=== PATIENT | female | born 1985 | race African-American/Black ===

== ENCOUNTER 2016-10-28 10:15 | Inpatient (IN) | payer OTHER ==
[2016-10-28 12:12] VITALS: BMI 35.1
--- NOTE | 2016-10-28 14:17 | HP ---
Admission [facility] - [facility] Chief Complaint: DETOX TX FOR ALCOHOLISM.."I WANNA GET MY LIFE TOGETHER'. Allergies/Adverse Reactions: Allergies Allergy/AdvReac Type Severity Reaction Status Date / Time penicillin G Allergy Severe Rash Verified 10/28/16 13:33 haloperidol [From Haldol] AdvReac Severe stiffness Verified 10/28/16 13:33 haloperidol lactate AdvReac Severe stiffness Verified 10/28/16 13:33 [From Haldol] History of Present Illness: 31 Y/O AA/FEMALE WITH A HX OF ALCOHOL,COCAINE,MARIJUANA/K2/?PCP DEPENDENCE SEEKING DETOX TX. Exam Limitations: No Limitations - Ebola screening Have you traveled outside of the country in the last 21 days: No Have you had contact with anyone from an Ebola affected area: No Have you been sick,other than usual withdrawal symptoms: No - Review of Systems Constitutional: Chills, Loss of Appetite, Night Sweats, Changes in sleep EENT: reports: Blurred Vision ("I NEED GLASSES") Respiratory: reports: No Symptoms reported Cardiac: reports: Palpitations GI: reports: Diarrhea, Poor Appetite : reports: No Symptoms Reported Musculoskeletal: reports: Back Pain, Joint Pain, Muscle Pain Integumentary: reports: No Symptoms Reported Neuro: reports: Tremors, Unsteady Gait Endocrine: reports: No Symptoms Reported Hematology: reports: No Symptoms Reported Psychiatric: reports: Orientated x3, Agitated, Anxious, Depressed Other Systems: Reviewed and Negative Patient History - Patient Medical History Hx Anemia: No Hx Asthma: No Hx Chronic Obstructive Pulmonary Disease (COPD): No Hx Cardiac Disorders: No Hx Hypertension: No Hx Hypercholesterolemia: No HX Cerebrovascular Accident: No Hx Seizures: No Hx Diabetes: No Hx Gastrointestinal Disorders: No Hx Genitourinary Disorders: No Hx Sexually Transmitted Disorders: No Hx Renal Disease (ESRD): No Hx Thyroid Disease: No Hx Human Immunodeficiency Virus (HIV): No (NEGATIVE HX) Hx Hepatitis C: No Hx Depression: Yes (NO CURRENT MED) Hx Suicide Attempt: No (DENIES) Hx Schizophrenia: No - Patient Surgical History Past Surgical History: Yes Hx Neurologic Surgery: No Hx Cataract Extraction: No Hx Cardiac Surgery: No Hx Lung Surgery: No Hx Breast Surgery: No Hx Breast Biopsy: No Hx Abdominal Surgery: No Hx Appendectomy: No Hx Cholecystectomy: No Hx Genitourinary Surgery: No Hx Section: Yes (x2) Hx Orthopedic Surgery: No Anesthesia Reaction: No - PPD History Previous Implant?: Yes Documented Results: Negative w/o proof Implanted On Prior R Admission?: No PPD to be Administered?: Yes - Reproductive History Patient is a Female of Child Bearing Age (11 -55 yrs old): Yes Last Menstrual Period: 10/28/16 Patient : No - Smoking Cessation Smoking history: Current every day smoker Have you smoked in the past 12 months: Yes Aproximately how many cigarettes per day: 20 Hx Chewing Tobacco Use: No Initiated information on smoking cessation: Yes 'Breaking Loose' booklet given: 10/28/16 - Substance & Tx. History Hx Alcohol Use: Yes (BEER/4LOKO/RUM) Hx Substance Use: Yes (CRACK/K2) Substance Use Type: Alcohol, Cocaine Hx Substance Use Treatment: Yes ([facility]) - Substances Abused Crack Route: Smoking Frequency: Daily Amount used: $20 Age of first use: 21 Date of Last Use: 10/27/16 Alcohol-beer/4 pam/rum Route: Oral Frequency: Daily Amount used: 10 (12 oz.)/1 pt. Age of first use: 16 Date of Last Use: 10/27/16 K2 Route: Smoking Frequency: 1-2 times per week Amount used: $5 Age of first use: 31 Date of Last Use: 10/27/16 Family Disease History - Family Disease History Family History: Unable to Obtain ("I DON'T KNOW") Admission Physical Exam [facility]HS - Vital Signs Vital Signs: Vital Signs - 24 hr 10/28/16 12:05 Temperature 97.8 F Pulse Rate 77 Respiratory 18 Rate Blood Pressure 132/81 - Physical General Appearance: Yes: Moderate Distress, Obese, Irritable, Anxious HEENTM: Yes: EOMI, Normocephalic, CLEO, Pharynx Normal Respiratory: Yes: Chest Non-Tender, Lungs Clear, Normal Breath Sounds, No Respiratory Distress Neck: Yes: Supple, Trachea in good position Breast: Yes: Breast Exam Deferred Cardiology: Yes: Regular Rhythm, Regular Rate, S1, S2 Abdominal: Yes: Normal Bowel Sounds, Non Tender, Soft Genitourinary: Yes: Other (N/C) Back: Yes: Within Normal Limits Musculoskeletal: Yes: full range of Motion, Gait Steady Extremities: Yes: Normal Range of Motion, Non-Tender Neurological: Yes: bridge tender II-XII NML intact, Fully Oriented, Alert, Motor Strength 5/5 Integumentary: Yes: Dry, Warm Lymphatic: Yes: Within Normal Limits - Diagnostic (1) Alcohol dependence with uncomplicated withdrawal Current Visit: Yes Status: Acute (2) Cocaine dependence, uncomplicated Current Visit: Yes Status: Acute (3) History of depression Current Visit: Yes Status: Chronic Cleared for Admission [facility] - Detox or Rehab [facility] Level of Care: Medically Managed Detox Regimen/Protocol: Librium [facility] Breath Alcohol Content Breath Alcohol Content: 0 Urine Pregancy Test - Result Urine Test Results: Negative- NO Line Present Urine Drug Screen - Results Drug Screen Negative: No Urine Drug Screen Results: THC-Marijuana, OFE-Cocaine, PCP-Phencyclidine
[2016-10-28] MEDS ORDERED: chlordiazePOXIDE HCL 25 MG CAPSULE PO PRN (14:40)
[2016-10-28] MEDS ORDERED: IBUPROFEN 400 MG TABLET (FP) PO PRN (14:40)
[2016-10-28] MEDS ORDERED: MENTHOL/PHENOL 1 EACH UD MM PRN (14:40)
[2016-10-28] MEDS ORDERED: MAGNESIUM HYDROX 2400MG/30ML ORAL SUSPENSION 30 ML CUP PO PRN (14:40)
[2016-10-28] MEDS ORDERED: MAGNESIUM CITRATE 300 ML BOTTLE PO PRN (14:40)
[2016-10-28] MEDS ORDERED: NICOTINE POLACRILEX 4 MG GUM BC PRN (14:40)
[2016-10-28] MEDS ORDERED: guaiFENesin/D-METHORPHAN HB 10 ML UNIT-DOSE CUPS PO PRN (14:40)
[2016-10-28] MEDS ORDERED: MAG HYDROX/AL HYDROX/SIMETH 30 ML UNIT-DOSE CUP PO PRN (14:40)
[2016-10-28] MEDS ORDERED: P-EPHED 60MG/TRIPROLIDI 2.5MG TABLET PO PRN (14:40)
[2016-10-28] MEDS ORDERED: ACETAMINOPHEN 325 MG TABLET (FP) PO PRN (14:40)
[2016-10-28] MEDS ORDERED: diphenhydrAMINE HCL 50 MG CAPSULE PO PRN (14:40)
[2016-10-28] MEDS ORDERED: LOPERAMIDE HCL 2 MG CAPSULE PO PRN (14:40)
[2016-10-28] MEDS ORDERED: chlordiazePOXIDE HCL 25 MG CAPSULE PO ONE (15:15)
[2016-10-28] MEDS: NICOTINE 21 MG/24 HOURS TOPICAL PATCH TD SCH (15:45)
[2016-10-28 18:16] LABS: URINE APPEARANCE TURBID; URINE BILIRUBIN NEGATIVE (NEGATIVE); URINE COLOR YELLOW; URINE GLUCOSE (UA) NEGATIVE (NEGATIVE); URINE KETONE NEGATIVE (NEGATIVE); URINE NITRITE NEGATIVE (NEGATIVE); URINE UROBILINOGEN NEGATIVE E.U./dl (0.2-1.0)
[2016-10-28 18:19] LABS: URINE BLOOD 2+ (NEGATIVE); URINE LEUK ESTERASE TRACE (NEGATIVE); URINE PROTEIN 1+ (NEGATIVE)
[2016-10-28] MEDS: chlordiazePOXIDE HCL 25 MG CAPSULE PO SCH ×2 (18:25→22:29)
[2016-10-28 19:00] LABS: URINE MUCUS MANY; URINE RBC 6 /hpf (0-3); URINE WBC 120 /hpf (3-5); YEAST MANY
[2016-10-28] MEDS: THIAMINE HCL 100 MG TABLET (FP) PO SCH (22:29)
[2016-10-29] MEDS: chlordiazePOXIDE HCL 25 MG CAPSULE PO SCH ×4 (08:18→23:00)
--- NOTE | 2016-10-29 08:49 | CONSULT ---
[facility] Psychiatric Consult - Data Date of interview: 10/29/16 Admission source: [facility] Identifying data: This is 31 years old female with no psychiatric hospitalization history inmtoxicated with: Alcohol,and Cocaine Substance Abuse History: - Smoking Cessation. Smoking history: Current every day smoker. Have you smoked in the past 12 months: Yes. Aproximately how many cigarettes per day: 20. Hx Chewing Tobacco Use: No. Initiated information on smoking cessation: Yes. 'Breaking Loose' booklet given: 10/28/16. - Substance & Tx. History. Hx Alcohol Use: Yes (BEER/4LOKO/RUM). Hx Substance Use: Yes ( CRACK/K2). Substance Use Type: Alcohol, Cocaine. Hx Substance Use Treatment: Yes ([facility]). - Substances Abused. Crack. Route: Smoking. Frequency: Daily. Amount used: $20. Age of first use: 21. Date of Last Use: 10/27/16. Alcohol-beer/4 pam/rum. Route: Oral. Frequency: Daily. Amount used: 10 (12 oz.)/1 pt. Age of first use: 16. Date of Last Use: 10/27/16. K2. Route: Smoking. Frequency: 1-2 times per week. Amount used: $5. Age of first use: 31. Date of Last Use: 10/27/16 Medical History: Denies significant medical issues Psychiatric History: Patient rep[rots history og depression,. reports no medications taking prior to admission Physical/Sexual Abuse/Trauma History: Denies Additional Comment: Observation. Detox Unit Care Protocol Mental Status Exam - Mental Status Exam Alert and Oriented to: Person Cognitive Function: Fair Patient Appearance: Unkempt Mood: Sad Affect: Flat Patient Behavior: Sedated Speech Pattern: Delayed Voice Loudness: Mildly Soft/Quiet Thought Process: Circumstantial Thought Disorder: Being Controlled Hallucinations: Denies Suicidal Ideation: Denies Homicidal Ideation: Denies Insight/Judgement: Fair Sleep: Difficulty falling asleep Appetite: Weight loss Muscle strength/Tone: Mild Hypotonicity Gait/Station: Shuffling Additional Comments: Observation. Detox Unit Care Protocol Psychiatric Findings - Problem List ([place] 1, 2,3) (1) Alcohol dependence with uncomplicated withdrawal Current Visit: Yes Status: Acute (2) Cocaine dependence, uncomplicated Current Visit: Yes Status: Acute (3) Drug-induced mood disorder Current Visit: Yes Status: Suspected - Initial Treatment Plan Initial Treatment Plan: Observation. Detox Unit Care Protocol
[2016-10-29 09:52] LABS: MCH 25.2 pg (25.7-33.7); MCHC 31.3 g/dl (32.0-36.0); MEAN CELL VOLUME 80.3 fl (80-96); MEAN PLT VOLUME 8.3 fl (7.5-11.1); PLATELET COUNT 437 K/MM3 (134-434); RDW 16.1 % (11.6-15.6); WHITE BLOOD COUNT 7.7 K/mm3 (4.0-10.0)
[2016-10-29 10:23] LABS: ALBUMIN 3.5 g/dl (3.4-5.0); ALK PHOS 113 U/L (45-117); ANION GAP 11 (8-16); BILIRUBIN,TOTAL 0.4 mg/dL (0.2-1.0); CALCIUM 8.9 mg/dL (8.5-10.1); CO2 25 mmol/L (21-32); COCKROFT - GAULT 138.9155; GLUCOSE,RANDOM 90 mg/dL (74-106); SGOT/AST 52 U/L (15-37); SGPT/ALT 59 U/L (12-78); TOT PROT 7.3 g/dl (6.4-8.2)
[2016-10-29] MEDS: PRENATAL VITAMINS W/ FOLIC ACID TABLET (FP) PO SCH (11:16)
[2016-10-29] MEDS: NICOTINE 21 MG/24 HOURS TOPICAL PATCH TD SCH (11:16)
--- NOTE | 2016-10-29 11:51 | PN ---
S CIWA - CIWA Score Nausea/Vomitin Muscle Tremors: 3 Anxiety: 2 Agitation: 2 Paroxysmal Sweats: 3 Orientation: 0-Oriented Tacttile Disturbances: 2-Mild Itch/Numbness/Burn Auditory Disturbances: 0-None Visual Disturbances: 0-None Headache: 0-None Present CIWA-Ar Total Score: 14 S Progress Note (SOAP) Subjective: interrupted sleep, sweats, , lbp Objective: 10/29/16 11:47 Vital Signs Temperature 97.8 F 10/29/16 09:53 Pulse Rate 86 10/29/16 09:53 Respiratory Rate 16 10/29/16 09:53 Blood Pressure 128/72 10/29/16 09:53 O2 Sat by Pulse Oximetry (%) Laboratory Tests 10/28/16 10/29/16 10/29/16 17:01 06:00 06:00 WBC 7.7 RBC 4.27 Hgb 10.8 Hct 34.3 MCV 80.3 MCHC 31.3 L RDW 16.1 H Plt Count 437 H MPV 8.3 Sodium 139 Potassium 3.8 Chloride 103 Carbon Dioxide 25 Anion Gap 11 BUN 6 L Creatinine 1.0 Creat Clearance w eGFR > 60 Random Glucose 90 Calcium 8.9 Total Bilirubin 0.4 AST 52 H ALT 59 Alkaline Phosphatase 113 Total Protein 7.3 Albumin 3.5 Urine Color Yellow Urine Appearance Turbid Urine pH 5.0 Ur Specific [place] >= 1.030 H Urine Protein 1+ H Urine Glucose (UA) Negative Urine Ketones Negative Urine Blood 2+ H Urine Nitrite Negative Urine Bilirubin Negative Urine Urobilinogen Negative Ur Leukocyte Esterase Trace H Urine RBC 6 Urine WBC 120 Ur Epithelial Cells Few Urine Mucus Many Urine Yeast Many pt aox3 in nad ambulating 10/29/16 11:48 10/29/16 11:49 Assessment: 10/29/16 11:48 withdrawal sx's yeast infection 10/29/16 11:48 10/29/16 11:49 10/29/16 11:51 Plan: cont. detox increase fluids diflucan 150mg
[2016-10-29] MEDS ORDERED: LIDOCAINE 5% TOPICAL PATCH TP ONE (11:55)
--- NOTE | 2016-10-29 13:13 | EKG ---
Test Reason : Blood Pressure : / mmHG Vent. Rate : 076 BPM Atrial Rate : 076 BPM P-R Int : 168 ms QRS Dur : 080 ms QT Int : 404 ms P-R-T Axes : 073 050 034 degrees QTc Int : 454 ms NORMAL SINUS RHYTHM NORMAL ECG NO PREVIOUS ECGS AVAILABLE Confirmed by HUGH LAM MD ([id number]) on 10/29/2016 1:13:02 PM Referred By: Aroldo Moreno Confirmed By:HUGH LAM MD
[2016-10-29] MEDS: CYCLOBENZAPRINE HCL 10 MG TABLET (FP) PO PRN (13:31)
[2016-10-29 13:37] LABS: SICKLE CELL SCREEN NEGATIVE (NEGATIVE)
[2016-10-29] MEDS ORDERED: LIDOCAINE PATCH REMOVAL MC SCH (22:00)
[2016-10-29] MEDS: THIAMINE HCL 100 MG TABLET (FP) PO SCH (23:01)
[2016-10-29] MEDS: LIDOCAINE PATCH REMOVAL MC SCH (23:01)
[2016-10-30] MEDS: chlordiazePOXIDE HCL 25 MG CAPSULE PO SCH ×2 (06:22→11:00)
[2016-10-30] MEDS: PRENATAL VITAMINS W/ FOLIC ACID TABLET (FP) PO SCH (10:58)
[2016-10-30] MEDS: NICOTINE 21 MG/24 HOURS TOPICAL PATCH TD SCH (10:59)
[2016-10-30] MEDS: LIDOCAINE 5% TOPICAL PATCH TP SCH (10:59)
--- NOTE | 2016-10-30 11:28 | PN ---
[facility] CIWA - CIWA Score Nausea/Vomitin-No Nausea/No Vomiting Muscle Tremors: 3 Anxiety: 3 Agitation: 4-Moderately Restless Paroxysmal Sweats: 3 Orientation: 0-Oriented Tacttile Disturbances: 0-None Auditory Disturbances: 0-None Visual Disturbances: 0-None Headache: 0-None Present CIWA-Ar Total Score: 13 S Progress Note (SOAP) Subjective: body aches irritable sweats Objective: 10/30/16 11:29 Vital Signs Temperature 98.2 F 10/30/16 10:00 Pulse Rate 80 10/30/16 10:00 Respiratory Rate 18 10/30/16 10:00 Blood Pressure 122/88 10/30/16 10:00 O2 Sat by Pulse Oximetry (%) Laboratory Tests 10/28/16 10/29/16 10/29/16 17:01 06:00 06:00 WBC 7.7 RBC 4.27 Hgb 10.8 Hct 34.3 MCV 80.3 MCHC 31.3 L RDW 16.1 H Plt Count 437 H MPV 8.3 Sickle Cell Screen Negative Sodium 139 Potassium 3.8 Chloride 103 Carbon Dioxide 25 Anion Gap 11 BUN 6 L Creatinine 1.0 Creat Clearance w eGFR > 60 Random Glucose 90 Calcium 8.9 Total Bilirubin 0.4 AST 52 H ALT 59 Alkaline Phosphatase 113 Total Protein 7.3 Albumin 3.5 Urine Color Yellow Urine Appearance Turbid Urine pH 5.0 Ur Specific [place] >= 1.030 H Urine Protein 1+ H Urine Glucose (UA) Negative Urine Ketones Negative Urine Blood 2+ H Urine Nitrite Negative Urine Bilirubin Negative Urine Urobilinogen Negative Ur Leukocyte Esterase Trace H Urine RBC 6 Urine WBC 120 Ur Epithelial Cells Few Urine Mucus Many Urine Yeast Many RPR Titer 10/29/16 06:00 WBC RBC Hgb Hct MCV MCHC RDW Plt Count MPV Sickle Cell Screen Sodium Potassium Chloride Carbon Dioxide Anion Gap BUN Creatinine Creat Clearance w eGFR Random Glucose Calcium Total Bilirubin AST ALT Alkaline Phosphatase Total Protein Albumin Urine Color Urine Appearance Urine pH Ur Specific [place] Urine Protein Urine Glucose (UA) Urine Ketones Urine Blood Urine Nitrite Urine Bilirubin Urine Urobilinogen Ur Leukocyte Esterase Urine RBC Urine WBC Ur Epithelial Cells Urine Mucus Urine Yeast RPR Titer Nonreactive awake/alert ambulating repeat u/a no acute distress Assessment: 10/30/16 11:30 withdrawal sx Plan: continue detox increase fluids f/u pending u/a continue lidocaine patch
[2016-10-30 14:40] LABS: URINE APPEARANCE CLEAR; URINE BILIRUBIN NEGATIVE (NEGATIVE); URINE COLOR LTYELLOW; URINE GLUCOSE (UA) NEGATIVE (NEGATIVE); URINE KETONE NEGATIVE (NEGATIVE); URINE LEUK ESTERASE NEGATIVE (NEGATIVE); URINE NITRITE NEGATIVE (NEGATIVE); URINE UROBILINOGEN NEGATIVE E.U./dl (0.2-1.0)
[2016-10-30 14:48] LABS: URINE BLOOD 2+ (NEGATIVE); URINE PROTEIN 1+ (NEGATIVE)
[2016-10-30 14:50] LABS: URINE MUCUS MODERATE; URINE RBC 1078 /hpf (0-3); URINE WBC 7 /hpf (3-5)
[2016-10-30] MEDS: chlordiazePOXIDE 5 MG CAPSULE PO SCH ×2 (17:59→22:35)
[2016-10-30] MEDS: THIAMINE HCL 100 MG TABLET (FP) PO SCH (22:35)
[2016-10-30] MEDS: CYCLOBENZAPRINE HCL 10 MG TABLET (FP) PO PRN (22:35)
[2016-10-30] MEDS: LIDOCAINE PATCH REMOVAL MC SCH (22:51)
[2016-10-31] MEDS: chlordiazePOXIDE 5 MG CAPSULE PO SCH ×2 (06:26→11:33)
[2016-10-31] MEDS: LIDOCAINE 5% TOPICAL PATCH TP SCH (11:28)
[2016-10-31] MEDS: NICOTINE 21 MG/24 HOURS TOPICAL PATCH TD SCH (11:28)
[2016-10-31] MEDS: PRENATAL VITAMINS W/ FOLIC ACID TABLET (FP) PO SCH (11:33)
[2016-10-31] MEDS: chlordiazePOXIDE HCL 10 MG CAPSULE PO SCH ×2 (20:00→22:26)
--- NOTE | 2016-10-31 20:11 | PN ---
[facility] Progress Note (SOAP) Subjective: Diarrhea, Interrupted sleep, Tremors, Chills, Body Aches. Objective: PT. A & O X 3, OBSERVED AMBULATING ON UNIT. 10/31/16 20:08 Vital Signs Temperature 98.4 F 10/31/16 18:35 Pulse Rate 88 10/31/16 18:35 Respiratory Rate 20 10/31/16 18:35 Blood Pressure 134/75 10/31/16 18:35 O2 Sat by Pulse Oximetry (%) Laboratory Tests 10/28/16 10/29/16 10/29/16 17:01 06:00 06:00 WBC 7.7 RBC 4.27 Hgb 10.8 Hct 34.3 MCV 80.3 MCHC 31.3 L RDW 16.1 H Plt Count 437 H MPV 8.3 Sickle Cell Screen Negative Sodium 139 Potassium 3.8 Chloride 103 Carbon Dioxide 25 Anion Gap 11 BUN 6 L Creatinine 1.0 Creat Clearance w eGFR > 60 Random Glucose 90 Calcium 8.9 Total Bilirubin 0.4 AST 52 H ALT 59 Alkaline Phosphatase 113 Total Protein 7.3 Albumin 3.5 Urine Color Yellow Urine Appearance Turbid Urine pH 5.0 Ur Specific [place] >= 1.030 H Urine Protein 1+ H Urine Glucose (UA) Negative Urine Ketones Negative Urine Blood 2+ H Urine Nitrite Negative Urine Bilirubin Negative Urine Urobilinogen Negative Ur Leukocyte Esterase Trace H Urine RBC 6 Urine WBC 120 Ur Epithelial Cells Few Urine Mucus Many Urine Yeast Many RPR Titer 10/29/16 10/30/16 06:00 12:45 WBC RBC Hgb Hct MCV MCHC RDW Plt Count MPV Sickle Cell Screen Sodium Potassium Chloride Carbon Dioxide Anion Gap BUN Creatinine Creat Clearance w eGFR Random Glucose Calcium Total Bilirubin AST ALT Alkaline Phosphatase Total Protein Albumin Urine Color Ltyellow Urine Appearance Clear Urine pH 9.0 H D Ur Specific [place] 1.020 Urine Protein 1+ H Urine Glucose (UA) Negative Urine Ketones Negative Urine Blood 2+ H Urine Nitrite Negative Urine Bilirubin Negative Urine Urobilinogen Negative Ur Leukocyte Esterase Negative Urine RBC 1078 Urine WBC 7 Ur Epithelial Cells Rare Urine Mucus Moderate Urine Yeast RPR Titer Nonreactive LABS NOTED. Assessment: 10/31/16 20:09 WITHDRAWAL SYMPTOMS. Plan: CONTINUE DETOX. PRN IMMODIUM FOR DIARRHEA. ADVISED PT. TO FOLLOW-UP WITH CONTACT [facility] AFTER DISCHARGE FROM DETOX FOR GENERAL MEDICAL ASSESSMENT AND FOR ABNORMAL UA VALUES.
[2016-10-31] MEDS: THIAMINE HCL 100 MG TABLET (FP) PO SCH (22:25)
[2016-10-31] MEDS: CYCLOBENZAPRINE HCL 10 MG TABLET (FP) PO PRN (22:25)
[2016-10-31] MEDS: LIDOCAINE PATCH REMOVAL MC SCH (22:47)
[2016-11-01] MEDS: chlordiazePOXIDE HCL 10 MG CAPSULE PO SCH (06:42)
[2016-11-01 07:43] VITALS: BP 127/80; PULSE 72; TEMP 97.9
[2016-11-01] MEDS: LIDOCAINE 5% TOPICAL PATCH TP SCH (09:51)
[2016-11-01] MEDS: NICOTINE 21 MG/24 HOURS TOPICAL PATCH TD SCH (09:52)
[2016-11-01] MEDS: PRENATAL VITAMINS W/ FOLIC ACID TABLET (FP) PO SCH (09:52)
--- NOTE | 2016-11-01 11:16 | DS ---
[facility] Detox Discharge Summary Admission Date: 10/28/16 Discharge Date: 11/01/16 - History Present History: Alcohol Dependence, Cocaine Dependence Pertinent Past History: Mood disorder - Physical Exam Results Vital Signs: Vital Signs Temperature 97.9 F 11/01/16 07:42 Pulse Rate 72 11/01/16 07:42 Respiratory Rate 18 11/01/16 07:42 Blood Pressure 127/80 11/01/16 07:42 O2 Sat by Pulse Oximetry (%) Pertinent Admission Physical Exam Findings: Withdrawal sx. Laboratory Last Values WBC 7.7 K/mm3 (4.0-10.0) 10/29/16 06:00 RBC 4.27 M/mm3 (3.60-5.2) 10/29/16 06:00 Hgb 10.8 GM/dL (10.7-15.3) 10/29/16 06:00 Hct 34.3 % (32.4-45.2) 10/29/16 06:00 MCV 80.3 fl (80-96) 10/29/16 06:00 MCHC 31.3 g/dl (32.0-36.0) L 10/29/16 06:00 RDW 16.1 % (11.6-15.6) H 10/29/16 06:00 Plt Count 437 K/MM3 (134-434) H 10/29/16 06:00 MPV 8.3 fl (7.5-11.1) 10/29/16 06:00 Sickle Cell Screen Negative (NEGATIVE) 10/29/16 06:00 Sodium 139 mmol/L (136-145) 10/29/16 06:00 Potassium 3.8 mmol/L (3.5-5.1) 10/29/16 06:00 Chloride 103 mmol/L (98-107) 10/29/16 06:00 Carbon Dioxide 25 mmol/L (21-32) 10/29/16 06:00 Anion Gap 11 (8-16) 10/29/16 06:00 BUN 6 mg/dL (7-18) L 10/29/16 06:00 Creatinine 1.0 mg/dL (0.55-1.02) 10/29/16 06:00 Creat Clearance w eGFR > 60 (>60) 10/29/16 06:00 Random Glucose 90 mg/dL (74-106) 10/29/16 06:00 Calcium 8.9 mg/dL (8.5-10.1) 10/29/16 06:00 Total Bilirubin 0.4 mg/dL (0.2-1.0) 10/29/16 06:00 AST 52 U/L (15-37) H 10/29/16 06:00 ALT 59 U/L (12-78) 10/29/16 06:00 Alkaline Phosphatase 113 U/L (45-117) 10/29/16 06:00 Total Protein 7.3 g/dl (6.4-8.2) 10/29/16 06:00 Albumin 3.5 g/dl (3.4-5.0) 10/29/16 06:00 Urine Color Ltyellow 10/30/16 12:45 Urine Appearance Clear 10/30/16 12:45 Urine pH 9.0 (5.0-8.0) H D 10/30/16 12:45 Ur Specific [place] 1.020 (1.005-1.025) 10/30/16 12:45 Urine Protein 1+ (NEGATIVE) H 10/30/16 12:45 Urine Glucose (UA) Negative (NEGATIVE) 10/30/16 12:45 Urine Ketones Negative (NEGATIVE) 10/30/16 12:45 Urine Blood 2+ (NEGATIVE) H 10/30/16 12:45 Urine Nitrite Negative (NEGATIVE) 10/30/16 12:45 Urine Bilirubin Negative (NEGATIVE) 10/30/16 12:45 Urine Urobilinogen Negative E.U./dl (0.2-1.0) 10/30/16 12:45 Ur Leukocyte Esterase Negative (NEGATIVE) 10/30/16 12:45 Urine RBC 1078 /hpf (0-3) 10/30/16 12:45 Urine WBC 7 /hpf (3-5) 10/30/16 12:45 Ur Epithelial Cells Rare /hpf (FEW) 10/30/16 12:45 Urine Mucus Moderate 10/30/16 12:45 Urine Yeast Many 10/28/16 17:01 RPR Titer Nonreactive (NONREACTIVE) 10/29/16 06:00 labs noted - Treatment Hospital Course: Detox Protocol Followed, Detoxed Safely, Responded well, Discharged Condition Good, Rehab Referral Accepted Patient has Accepted a Rehab Referral to: [facility] - Medication Discharge Medications: Ambulatory Orders NK [No Known Home Medication] 10/28/16 - Diagnosis (1) Alcohol dependence with uncomplicated withdrawal Status: Acute (2) Cocaine dependence, uncomplicated Status: Acute (3) Drug-induced mood disorder Status: Suspected - AMA Did Patient Leave Against Medical Advice: No
== END 2016-11-01 10:16 | disposition home or self-care (01) | DRG 774 ==
LOC: YASAS 10:15 → Y6N 13:53
PROVIDERS: ADMIT Internal Medicine Addiction Medicine; ATTEND Internal Medicine Addiction Medicine
PROC: HZ2ZZZZ Detoxification Services for Substance Abuse Treatment (ICD-10-PCS; principal; 2016-10-28)
DX: F10.230 Alcohol dependence with withdrawal, uncomplicated (principal); F14.20 Cocaine dependence, uncomplicated; F17.210 Nicotine dependence, cigarettes, uncomplicated; F19.24 Other psychoactive substance dependence with psychoactive substance-induced mood disorder; E66.9 Obesity, unspecified; Z68.35 Body mass index [BMI] 35.0-35.9, adult; B37.3 Candidiasis of vulva and vagina; Z59.0 Homelessness
CPT/HCPCS: 36415; 80053; 81003; 81015; 85027; 85660; 86593; 93005; 93010

== ENCOUNTER 2024-07-30 20:25 | Inpatient (IN) | payer OTHER ==
[2024-07-30 22:01] VITALS: BMI 25.5
[2024-07-30] MEDS ORDERED: LOPERAMIDE HCL 2 MG CAPSULE PO PRN (23:24)
[2024-07-30] MEDS ORDERED: BENZONATATE 200 MG CAPSULE PO PRN (23:24)
[2024-07-30] MEDS ORDERED: NALOXONE (NARCAN) HCL 4 MG/0.1 ML SPRAY NS PRN (23:24)
[2024-07-30] MEDS ORDERED: BENZOCAINE/MENTHOL (CHLORASEPTIC ) LOZENGE MM PRN (23:24)
[2024-07-30] MEDS ORDERED: MAGNESIUM HYDROX 2400MG/30ML ORAL SUSPENSION 30 ML CUP PO PRN (23:24)
[2024-07-30] MEDS ORDERED: NICOTINE POLACRILEX 2 MG GUM BUC PRN (23:24)
[2024-07-30] MEDS ORDERED: ACETAMINOPHEN 325 MG TABLET (FP) PO PRN (23:24)
[2024-07-30] MEDS ORDERED: IBUPROFEN 400 MG TABLET (FP) PO PRN (23:24)
[2024-07-30] MEDS ORDERED: hydrOXYzine PAMOATE 25 MG CAPSULE (FP) PO PRN (23:24)
[2024-07-30] MEDS ORDERED: guaiFENesin 600 MG TABLET.ER (FP) PO PRN (23:24)
[2024-07-30] MEDS ORDERED: POLYETHYLENE GLYCOL (HEALTHYLAX) 3350 17 GM PACKET PO PRN (23:24)
[2024-07-30] MEDS ORDERED: MAG HYDROX/AL HYDROX/SIMETH 30 ML UNIT-DOSE CUP PO PRN (23:24)
[2024-07-31] MEDS: MELATONIN 5 MG TABLETS PO SCH (01:16)
[2024-07-31] MEDS: TUBERCULIN PPD 5 TU/0.1ML SYRINGE (IN PATIENT USE ONLY) ID ONE (07:47)
[2024-07-31 08:50] VITALS: RESP 18
[2024-07-31] MEDS ORDERED: DOXYCYCLINE HYCLATE 100 MG CAPSULE PO SCH (10:00)
[2024-07-31] MEDS: PRENATAL VITAMINS W/ FOLIC ACID TABLET (FP) PO SCH (10:05)
[2024-07-31] MEDS: levETIRAcetam 500 MG TABLET (FP) PO SCH (10:05)
[2024-07-31] MEDS: amLODIPine BESYLATE 5 MG TABLET (FP) PO SCH (10:05)
[2024-07-31] MEDS: NICOTINE 21 MG/24 HOURS TOPICAL PATCH TD SCH (10:06)
[2024-07-31] MEDS: metroNIDAZOLE 250 MG TABLET PO SCH (10:49)
[2024-07-31] MEDS: DOXYCYCLINE HYCLATE 100 MG TABLET PO SCH (10:54)
[2024-07-31 17:28] LABS: HEMATOCRIT 35.1 % (32.4-45.2); HEMOGLOBIN 11.1 GM/dL (10.7-15.3); MCH 25.4 pg (25.7-33.7); MCHC 31.7 g/dl (32.0-36.0); MEAN CELL VOLUME 80.1 fl (80-96); MEAN PLT VOLUME 7.6 fl (7.5-11.1); PLATELET COUNT 406 10^3/uL (134-434); RBC 4.39 M/mm3 (3.60-5.2); RDW 16.2 % (11.6-15.6); WHITE BLOOD COUNT 4.3 K/mm3 (4.0-10.0)
[2024-07-31 17:31] LABS: CHLORIDE 105 mmol/L (98-107); SODIUM 139 mmol/L (136-145)
[2024-07-31 17:32] LABS: ALBUMIN 2.8 g/dl (3.4-5.0)
[2024-07-31 17:33] LABS: ANION GAP 6 mmol/L (4-13); BLOOD UREA NITROGEN 9.2 mg/dL (7-18); CALCIUM 8.9 mg/dL (8.5-10.1); CO2 28 mmol/L (21-32); GLUCOSE,RANDOM 95 mg/dL (74-106)
[2024-07-31 17:36] LABS: CREATININE 0.6 mg/dL (0.55-1.3); SGOT/AST 20 U/L (15-37); SGPT/ALT 23 U/L (13-61)
[2024-07-31 17:38] LABS: BILIRUBIN,TOTAL 0.1 mg/dL (0.2-1); TOT PROT 6.1 g/dl (6.4-8.2)
[2024-07-31 17:39] LABS: ALK PHOS 95 U/L (45-117)
[2024-07-31] MEDS: THIAMINE 100 MG TABLET PO SCH (21:23)
[2024-07-31] MEDS: traZODone HCL 100 MG TABLET (FP) PO SCH (21:24)
[2024-07-31] MEDS: risperiDONE 2 MG TABLET PO SCH (21:41)
[2024-08-01 06:58] VITALS: BP 146/83; PULSE 98; TEMP 97.6
[2024-08-01] MEDS: IBUPROFEN 600 MG TABLET (FP) PO PRN (07:02)
[2024-08-01] MEDS: risperiDONE 1 MG TABLET PO SCH (11:05)
== END 2024-08-01 09:05 | disposition left against medical advice (07) | DRG 770 ==
LOC: YASAS 20:25 → Y3NR 07-31 01:06 → Y5N 07-31 12:21
PROVIDERS: ADMIT Allergy & Immunology; ATTEND Psychiatry & Neurology Pain Medicine
PROC: HZ42ZZZ Group Counseling for Substance Abuse Treatment, Cognitive-Behavioral (ICD-10-PCS; principal; 2024-07-31)
DX: F10.20 Alcohol dependence, uncomplicated (principal); F14.20 Cocaine dependence, uncomplicated; F17.210 Nicotine dependence, cigarettes, uncomplicated; F31.9 Bipolar disorder, unspecified; F43.10 Post-traumatic stress disorder, unspecified; F41.9 Anxiety disorder, unspecified; G40.909 Epilepsy, unspecified, not intractable, without status epilepticus; I10 Essential (primary) hypertension; N39.0 Urinary tract infection, site not specified; Z88.0 Allergy status to penicillin; Z88.8 Allergy status to other drugs, medicaments and biological substances; Z59.00 Homelessness unspecified
CPT/HCPCS: 36415; 80053; 80305; 80307; 81025; 85027; 86780; 87811; 93005; 93010